=== PATIENT | female | born 1955 | race African-American/Black ===

== ENCOUNTER 2019-01-24 20:13 | Emergency (ER) | payer OTHER ==
[~2019-01-24] VITALS: Ht 149.9 cm; Wt 74.8 kg
[~2019-01-24 20:13] MED LIST: ACETAMINOPHEN325 M1 PO; ATIVAN0.5 MG PO; ATIVAN1 MG PO; AUGMENTIN 875875 MG PO; CLONAZEPAM; CLONAZEPAM 0.50.5 M1 PO; FLEXERIL PO; GERITOL PO; HERBAL TEA PO; HYDROCORTISONE 01 OZ TOP; IBUPROFEN 600600 M1 PO; IBUPROFEN 800800 M1 PO; IRON325 PO; LISINOPRIL20 MG PO; LORTAB PO; MELATONIN1 MG PO; MULTIVITAMINS PO; NAPROSYN500 MG PO; NORCO 5-325 TA1 EACH PO; PEPCID40 MG PO; PROCTOSOL TP; PROGESTERO50 MG/1 M4; ROBITUSSIN15 MG PO; SIMETHICON CHEW80 M1 PO; TRAMADOL 50 MG50 MG PO; VICODIN 5-5001 EACH PO; VISINE15 ML; VITAMIN B-12100 MC1 PO; VITAMIN D400 UNI1 PO; VITAMIN E400 UNIT PO; WELLBUTRIN 100100 MG PO; ZOFRAN ODT4 MG PO
[2019-01-24 21:54] LABS: ABSOLUTE NEUTROPHILS 3.4 thou/uL (1.4-8.2); BASOPHILS 1.2 % (0.0-2.0); EOSINOPHILS 2.8 % (0.0-3.0); HEMATOCRIT 36.3 % (37.0-47.0); LYMPHOCYTES 32.2 % (24.0-44.0); MCH 26.7 pg (26.0-34.0); MCV 80.7 fL (80.0-100.0); MONOCYTES 10.7 % (1.0-8.0); PLATELET COUNT 314 thou/uL (150-400); POLYS 53.1 % (36.0-66.0); RBC 4.49 mil/uL (4.20-5.00); RDW 16.8 % (10.5-14.5); WBC 6.4 thou/uL (4.0-11.0)
[2019-01-24 22:05] LABS: ANION GAP 9 mmol/L (7-16); BUN 20 mg/dL (7-18); CALCIUM 8.7 mg/dL (8.5-10.1); CHLORIDE 104 mmol/L (98-107); CO2 28 mmol/L (21-32); CREATININE 0.9 mg/dL (0.6-1.0); GLUCOSE 124 mg/dL (74-106); POTASSIUM 3.4 mmol/L (3.5-5.1); SODIUM 141 mmol/L (136-145)
[2019-01-24 22:13] LABS: TROPONIN-I <0.06 ng/mL (<0.06)
[2019-01-24] MEDS ORDERED: PREDNISONE 20 M20 MG PO (23:13)
[2019-01-24 23:45] VITALS: BP 134/85
--- NOTE | 2019-01-25 13:18 | EKG ---
[address] [address] ELECTROCARDIOGRAM REPORT Name: ANGE FRANCIS BRE Room #: [facility]P [facility] [id number] Admission: 01/24/19 Attend Phys: Discharge: 01/24/19 Date of : 59 Report #: [id number] THIS REPORT FOR: //name// [facility] ED Test Date: 2019-01-24 Test Time: 20:57:33 Pat Name: ANGE FRANCIS Department: Room: Gender: F [employer]: [facility] : 1955 Requested By: Tiffanie Crespo Order Number: [id number] MD: Mehul Plaza Measurements Intervals [place] Rate: 68 P: 5 MI: 150 QRS: 1 QRSD: 89 T: 1 QT: 430 QTc: 458 Interpretive Statements Sinus rhythm Normal tracing Compared to ECG 08/24/2014 18:31:19 No significant changes Electronically Signed On 01-25-2019 13:18:04 CDT by Mehul Plaza [email or web address] <ELECTRONICALLY SIGNED> By: Mehul Plaza MD, [facility] 01/25/19 1318 56 56 Mehul Plaza MD, FACC /EPI
== END 2019-01-24 23:45 | disposition home or self-care (01) ==
LOC: ER 20:13
PROVIDERS: Emergency Medicine
DX: L25.9 Unspecified contact dermatitis, unspecified cause (principal); L50.8 Other urticaria; I10 Essential (primary) hypertension; Z88.1 Allergy status to other antibiotic agents; Z79.899 Other long term (current) drug therapy; Z90.710 Acquired absence of both cervix and uterus